=== PATIENT | female | born 1955 | race Caucasian/White ===

== ENCOUNTER 2020-08-27 06:02 | Day surgery (SDC) | payer BC, MEDICARE ==
--- NOTE | 2020-08-26 09:02 | PCM.SN.2 ---
- Free Text/Narrative Note: Date: 08/27/2020 Time Out: 643 Start: 643 Stop: 699 Surgical Procedure: Left Reverse Total Shoulder Arthroplasty Diagnosis: Left shoulder OA Current Procedure: Left interscalene block under US guidance for postoperative pain control requested by Dr. Royal. Patient chart reviewed, risk/benefits discussed with patient, consent obtained. Patient positioned supine, monitors/alarms on, oxygen placed via nasal cannula at 2 LPM. IV sedation administered: Versed 2mg IV, Fentanyl 50mcg IV given in preop prior to block placement. Left shoulder prepped with two chloropreps. Sterile drapes placed with aseptic technique noted. Under US guidance, left subclavian artery visualized along with the left brachial plexus. Plexus followed up to C6 cricoid level, and area localized with 2mls of 1% lidocaine. 22gauge 2 inch stimiplex needle advanced under US with 0.6mV with stimulation of biceps noted. Good stimulation noted with decreased voltage and absent at 0.3mVs. 1ml of Normal Saline injected with loss of stimulation noted to confirm needle not placed intraneurally. Incremental dosing of 5mls with negative aspiration noted prior to each injection of 0.5% ropivacaine with 1:200,000 epinephrine. Total volume=30mls. Please refer to nurses noted for vital signs. Rufina Thompson CRNA
--- NOTE | 2020-08-26 11:40 | PCM.PREANE ---
Preanesthetic Assessment - Procedure Proposed Procedure: Left Reverse Total Shoulder Arthroplasty - Anesthesia/Transfusion/Family Hx Anesthesia History: Prior Anesthesia Without Reaction Family History of Anesthesia Reaction: No Transfusion History: No Prior Transfusion(s) Intubation History: Unknown - Review of Systems General: No Symptoms Pulmonary: No Symptoms (Asthma: uses albuterol 2-3 times daily) Cardiovascular: No Symptoms (HTN, elevated cholesterol) Gastrointestinal: No Symptoms (GERD-depending on diet), Constipation (occasionally) Neurological: No Symptoms, Tingling (left arm) Other: Reports: Easy Bruising, Sinus Problem (seasonal allergies/history of sinus surgery) - Physical Assessment NPO Status Date: 08/26/20 NPO Status Time: 22:30 Vital Signs: HR:88 Sat:98% Temp:98 Resp:16 B/P:124/70 Height: 1.65 m Weight: 77 kg ASA Class: 2 Mental Status: Alert & Oriented x3 Airway Class: Mallampati = 2 Dentition: Reports: Normal Dentition, Caries Thyro-Mental Finger Breadths: 3 Mouth Opening Finger Breadths: 3 ROM/Head Extension: Full Lungs: Clear to Auscultation, Normal Respiratory Effort Cardiovascular: Regular Rate, Regular Rhythm, No Murmurs - Lab Values: All labs reviewed and noted and within acceptable ranges to proceed with scheduled procedure. - Imaging/EKG Impressions: CXR: negative EKG:SR rate= 82, borderline left axis deviation - Allergies Allergies/Adverse Reactions: Allergies Allergy/AdvReac Type Severity Reaction Status Date / Time animal dander Allergy Airway Verified 08/26/20 16:05 Tightness lisinopril Allergy Cough Verified 08/26/20 16:05 Xyodals-Fuf-Pro Reductase Allergy Muscle Verified 08/26/20 16:05 Inhibitor Aches tree and shrub pollen Allergy Airway Verified 08/26/20 16:05 Tightness hay fever Allergy Airway Uncoded 08/26/20 16:05 Tightness - Anesthesia Plan Pre-Op Medication Ordered: Other (Preoperative oral meds: lyrica, oxycodone, tylenol @0625) - Acknowledgements Anesthesia Type Planned: General Anesthesia (Left ISB under US guidance for post operative pain control requested by Dr. Royal.) Pt an Appropriate Candidate for the Planned Anesthesia: Yes Alternatives and Risks of Anesthesia Discussed w Pt/Guardian: Yes Pt/Guardian Understands and Agrees with Anesthesia Plan: Yes PreAnesthesia Questionnaire - HOME MEDS Home Medications: Home Meds Albuterol Sulfate [Proair Hfa] 1 - 2 puff INH Q4H PRN 08/26/20 [History] Ascorbic Acid [Vitamin C] 500 mg PO DAILY 08/26/20 [History] Cholecalciferol (Vitamin D3) [Vitamin D3] 5,000 unit PO DAILY 08/26/20 [History] Ezetimibe [Zetia] 10 mg PO DAILY 08/26/20 [History] Fish Oil/[place]-3 Fatty Acids [Fish Oil 1,000 MG] 1 gm PO Q48H 08/26/20 [History] Fluticasone/Salmeterol [Advair 250-50] 1 puff INH DAILY 08/26/20 [History] Loratadine [Claritin] 10 mg PO DAILY PRN 08/26/20 [History] Multivitamin 1 tab PO DAILY 08/26/20 [History] Ubidecarenone [Coq-10] 100 mg PO Q48H 08/26/20 [History] Zolpidem Tartrate [Ambien] 5 mg PO BEDTIME PRN 08/26/20 [History] amLODIPine Besylate [Norvasc] 10 mg PO DAILY 08/26/20 [History] Aspirin [Aspirin EC] 325 mg PO DAILY #40 tablet.dr 08/27/20 [Rx] Cyclobenzaprine [Flexeril] 5 mg PO BID PRN #20 tab 08/27/20 [Rx] oxyCODONE 5 - 10 mg PO Q4H PRN #60 tab 08/27/20 [Rx] - CURRENT (IN HOUSE) MEDS Current Meds: Current Medications Lactated Ringer's (Ringers, Lactated) 1,000 mls @ 125 mls/hr IV ASDIRECTED FRANSICO Lidocaine/Sodium Bicarbonate (Buffered Lidocaine 1% In Ns 8.4%) 0.25 ml IDERM ONETIME PRN PRN Reason: Prior to IV Start Sodium Chloride (Saline Flush) 10 ml FLUSH ASDIRECTED PRN PRN Reason: Keep Vein Open
[~2020-08-27 06:02] MED LIST: Acetaminophen 325 MG Tab PO SCH; Albuterol 0.083% 2.5 MG/3 ML Neb Soln NEB PRN; Dexamethasone 4 MG/ML 5 ML MDV ONE; EPINEPHrine 1 MG/ML SDV ONE; Ketorolac 30 MG/ML SDV ONE; Lactated Ringers 1,000 ML IV SCH; Lactated Ringers 1,000 ML ONE; Lidocaine 1% 2 ML ONE; Lidocaine 1% 4 ML ONE; Lidocaine 1%/Sod Bicarbonate in NS 8.4% 1 ML Syringe IDERM PRN; Midazolam 1 MG/ML 2 ML SDV ONE; Ondansetron 4 MG/2 ML SDV ONE; Pregabalin 25 MG Cap PO SCH; Rocuronium 50 MG/5 ML Vial ONE; Ropivacaine 0.5% 5 MG/ML 30 ML SDV ONE; Sodium Chloride 0.9% 10 ML Syringe FLUSH PRN; fentaNYL 250 MCG/5 ML SDV ONE; oxyCODONE ER 10 MG TAB.ER PO SCH
[2020-08-27] MEDS ORDERED: Ondansetron 4 MG/2 ML SDV IVPUSH PRN (07:40)
[2020-08-27] MEDS ORDERED: Midazolam 1 MG/ML 2 ML SDV IVPUSH PRN (07:40)
[2020-08-27] MEDS ORDERED: fentaNYL 100 MCG/2 ML SDV IVPUSH PRN (07:40)
[2020-08-27] MEDS ORDERED: ePHEDrine 50 MG/ML SDV IVPUSH PRN (07:40)
[2020-08-27] MEDS ORDERED: diphenhydrAMINE 50 MG/ML SDV IVPUSH PRN (07:40)
[2020-08-27] MEDS ORDERED: HYDROmorphone 0.5 MG/0.5 ML Syringe IVPUSH PRN (07:41)
[2020-08-27] MEDS ORDERED: Albuterol 0.083% 2.5 MG/3 ML Neb Soln NEB PRN (07:41)
[2020-08-27] MEDS ORDERED: Lactated Ringers 1,000 ML ONE (08:02)
[2020-08-27] MEDS: Vancomycin 1 GM SDV ONE ×2 (08:05→08:38)
--- NOTE | 2020-08-27 09:15 | PCM.POSTAN ---
POST ANESTHESIA ASSESSMENT - MENTAL STATUS Mental Status: Alert - VITAL SIGNS Vital Signs: Last Vital Signs Temp 97.8 08/27/20712 Pulse 98 08/27/20712 Resp 16 08/27/20712 BP 129/72 08/27/20712 Pulse Ox 98 08/27/20712 - RESPIRATORY Respiratory Status: Respiratory Rate WNL, Airway Patent, O2 Saturation Stable, Supplemental Oxygen - CARDIOVASCULAR CV Status: Pulse Rate WNL, Blood Pressure Stable - GASTROINTESTINAL GI Status: No Symptoms - POST OP HYDRATION Hydration Status: Adequate & Stable
[2020-08-27] MEDS ORDERED: oxyCODONE 5 MG Tab PO PRN (09:59)
--- NOTE | 2020-08-27 12:42 | PCM48HPAN ---
Post Anesthesia Note - EVALUATION WITHIN 48HRS OF ANESTHETIC Vital Signs in Normal Range: Yes Patient Participated in Evaluation: Yes Respiratory Function Stable: Yes Airway Patent: Yes Cardiovascular Function Stable: Yes Hydration Status Stable: Yes Pain Control Satisfactory: Yes Nausea and Vomiting Control Satisfactory: Yes Mental Status Recovered: Yes Vital Signs: Last Vital Signs Temp 36.4 C 08/27/20 11:00 Pulse 85 08/27/20 12:00 Resp 12 08/27/20 12:00 BP 104/64 08/27/20 12:00 Pulse Ox 92 L 08/27/20 12:00
--- NOTE | 2020-09-03 09:47 | CR ---
PROCEDURE INFORMATION: Exam: FL Fluoroscopy, Up to 1 Hour Physician Time; Radiologist Not Present For Fluoroscopy Exam date and time: 08/27/2020 8:32 AM Age: 65 years old Clinical indication: Condition or disease; Condition/disease: Reverse total shoulder TECHNIQUE: Imaging protocol: Fluoroscopy , up to 1 hour physician or other qualified health customer care representative time. This radiologist did not supervise this procedure. Exam supervised by facility personnel. Report for radiation dosage reporting and documentation only. COMPARISON: No relevant prior studies available. RADIATION DOSE METRICS: Fluoroscopy time (seconds): 5.2 seconds Number of fluoro spot images: 1 Reference air kerma (KIRBY): Not provided. FINDINGS: Procedural imaging: Status post a left reverse total shoulder arthroplasty Notes: Fluoroscopy supervised by facility personnel. See also separate procedure report. IMPRESSION: Fluoroscopy dosage documentation. See also separate procedure notes. Thank you for allowing us to participate in the care of your patient. Dictated and Authenticated by: Sandor Glover MD 08/27/2020 9:46 AM Central Time ([place] & [place]) [place]
--- NOTE | 2020-09-03 09:49 | CR ---
PROCEDURE INFORMATION: Exam: XR Left Shoulder Exam date and time: 08/27/2020 9:02 AM Age: 65 years old Clinical indication: Condition or disease; Other: Post op; Prior surgery; Surgery date: Post-operative (0-2 days) TECHNIQUE: Imaging protocol: XR Left shoulder. Views: 1 view. COMPARISON: CR Shoulder Comp Lt 07/31/2020 11:31 AM FINDINGS: Bones/joints: Status post left reversed total shoulder arthroplasty without evidence of loosening, fracture, or failure. Soft tissues: There is subcutaneous emphysema as well as air within the joint space consistent with the recent surgical procedure. IMPRESSION: Status post left reversed total shoulder arthroplasty without evidence of loosening, fracture, or failure. Thank you for allowing us to participate in the care of your patient. Dictated and Authenticated by: Sandor Glover MD 08/27/2020 10:42 AM Central Time ([place] & [place]) [place]
--- NOTE | 2020-09-04 07:44 | PCM.OPNOTE ---
- General Post-Op/Procedure Note Date of Surgery/Procedure: 08/27/20 Operative Procedure(s): left reverse total shoulder arthroplasty Pre Op Diagnosis: left shoulder rotator cuff tear arthropathy Post-Op Diagnosis: Same Anesthesia Technique: General ET Tube, Regional Block Primary Surgeon: Fabián Royal Anesthesia Provider: Rufina Thompson Fur Sewer: Vera Bui Fur Sewer: Malathi Rivera EBL in mLs: 50 Complications: None Condition: Good Free Text/Narrative:: 13 stem 36+6 4mm poly
--- NOTE | 2020-09-08 06:08 | OR ---
DATE OF OPERATION: 08/27/2020 SURGEON: Fabián Royal MD OPERATION PERFORMED: Left reverse total shoulder arthroplasty. PREOPERATIVE DIAGNOSIS: Left shoulder rotator cuff tear arthropathy. POSTOPERATIVE DIAGNOSIS: Left shoulder rotator cuff tear arthropathy. ANESTHESIA: General endotracheal intubation with regional interscalene block. ANESTHESIA PROVIDER: Rufina Thompson CRNA. ASSISTANTS: Vera Bui PA-C; and Malathi Rivera LPN. ESTIMATED BLOOD LOSS: 50 mL. COMPLICATIONS: None. CONDITION: Stable. IMPLANTS: 1. Lisa size 13, 135 degree humeral stem. 2. Lisa size 36 +6 Glenosphere. 3. Nunda size 4 mm poly. 4. Nunda size 28 mm concentric glenoid baseplate. DESCRIPTION OF PROCEDURE: The patient was identified in the preoperative holding area, where proper site was marked and identified by the surgeon. The patient was taken back to the operating theater where after adequate anesthesia, the patient's left upper extremity was sterilely prepped and draped in the usual sterile fashion. OR time-out was performed. The patient received 2 g IV Ancef. At this time, standard deltopectoral incision was made. This was taken down to the cephalic vein. Cephalic vein was retracted laterally with the deltoid. The clavipectoral fascia was incised. The conjoined tendon was retracted medially. The anterior humeral circumflex vessels were ligated. Biceps tendon was identified and biceps tendon underwent a biceps tenodesis near the pectoralis major. Biceps was then resected all the way back to the level of the glenoid. The peel down of the subscapularis tendon was then done and the humeral head was dislocated. Humeral head cut was then completed and found to be adequate. Attention was turned to the glenoid. Anterior and posterior glenoid retractors were then placed. Circumferential removal of any remaining labrum as well as capsulectomy were then performed. A guide pin was then placed in a center- center position with roughly 10 degrees of inferior tilt. The 28 mm reamer was then utilized until there was a good smile sign with good bony bleeding cancellous bone. The glenoid baseplate was then placed and the central compression screw was placed and found to have adequate purchase with good apposition of the glenoid baseplate on the face of the glenoid. The 36 +6 Glenosphere was then impacted into place and attention was turned to the humerus. Starting with a 10 broach, I was able to broach up to a size 13, which was found to be rotationally and vertically stable. Trial implants were then placed. C-arm fluoroscopy was utilized making sure all the implants were well positioned. There was no instability. The patient had full range of motion with no catching. The trial implants were then removed. The 13 stem with the 4 mm poly was constructed on the back table and then impacted en bloc into the shoulder. Shoulder was then relocated. C-arm fluoroscopy was again utilized showing all components to be well aligned. 1 L of pulse lavage irrigation with Ancef was then irrigated through the shoulder along with Aricept irrigation. Topical tranexamic acid and vancomycin powder were applied. 2-0 Vicryl was used subcutaneously and Prineo was used for closure of the skin. The patient was placed in a sterile soft dressing and a pillow sling and sent to PACU in stable condition. ASHLEE /[id number]
== END 2020-08-27 14:55 | disposition home or self-care (01) ==
LOC: JD.SDS 06:02 → EDSTATUS 07:30 → JD.SDS 14:55
PROVIDERS: ATTEND Orthopaedic Surgery
DX: M75.102 Unspecified rotator cuff tear or rupture of left shoulder, not specified as traumatic (principal); I10 Essential (primary) hypertension; E78.00 Pure hypercholesterolemia, unspecified; J45.20 Mild intermittent asthma, uncomplicated; Z78.0 Asymptomatic menopausal state; Z79.899 Other long term (current) drug therapy; Z88.8 Allergy status to other drugs, medicaments and biological substances
CPT/HCPCS: 23472; 73020; 76000; 97110; 97161; A9270; C1713; C1776; J0171; J1100; J1885; J2001; J2250; J2405; J2710; J2795; J3010; J3370; J7120; 01638; 64415; J2370

== ENCOUNTER 2021-05-27 17:07 | Emergency (ER) | payer OTHER, MEDICARE ==
[2021-05-27] MEDS ORDERED: Sodium Chloride 0.9% 10 ML Syringe FLUSH PRN (17:29)
[2021-05-27] MEDS ORDERED: Ondansetron 4 MG/2 ML SDV IVPUSH ONE (17:31)
[2021-05-27] MEDS ORDERED: Sodium Chloride 0.9% 1,000 ML IV STA (17:31)
[2021-05-27] MEDS ORDERED: HYDROmorphone 0.5 MG/0.5 ML Syringe IVPUSH ONE (17:31)
--- NOTE | 2021-05-27 18:22 | CT ---
CT abdomen and pelvis Technique: Multiple axial sections were obtained from above the dome of the diaphragm inferiorly through the pubic symphysis. Intravenous and oral contrast were not utilized. Study has been performed as a ureteral stone protocol. Comparison: No prior abdomen and pelvis imaging is available. Findings: Multiple parapelvic cysts are seen within both kidneys, worse on the left side. There are two nonobstructing calculi being seen within the left kidney with largest calculus measuring 7 mm. Two small calculi are noted within the right kidney with largest measuring 4 mm. No ureteral dilatation or ureteral stone is seen. No bladder calculi are seen. Visualized lung bases show nothing acute. Numerous cysts are seen within the right and left lobes of the liver. Largest cyst is located within the right lobe of the liver measuring 7.1 cm. Gallbladder contains no calcified gallstones. Adrenal glands show no nodule. Pancreas appears within normal limits. Abdominal aorta shows atherosclerotic calcification which continues into the iliac arteries. No aneurysm is seen. No retroperitoneal adenopathy or mesenteric abnormalities are seen. No pelvic mass or adenopathy is seen. Appendix is not visualized with certainty. There is evidence of fecal material within distal small bowel loops in the right lower quadrant. No bowel dilatation is seen in this area. Bone window settings were reviewed which show degenerative change within the lumbar spine. There is fusion at L5-S1 being seen with spondylolisthesis measuring 1.3 cm. Impression: 1. Numerous liver cysts as well as multiple parapelvic cysts within both kidneys. Parapelvic cysts are more prominent within the left kidney. Two nonobstructing calculi are seen within each kidney. No ureteral dilatation or ureteral calculi are is seen. 2. Other findings as noted above which are chronic. Nothing acute is appreciated. Diagnostic code #2
--- NOTE | 2021-05-27 19:09 | EDM.PDOC ---
ED HPI GENERAL MEDICAL PROBLEM - General Chief Complaint: Abdominal Pain Stated Complaint: NAUSEA/ABDOMINAL PAIN Time Seen by Provider: 05/27/21 17:12 Source of Information: Reports: Patient, RN Notes Reviewed History Limitations: Reports: No Limitations - History of Present Illness INITIAL COMMENTS - FREE TEXT/NARRATIVE: Patient is a 65-year-old female presenting to the emergency department with complaints of right-sided flank and abdominal pain that started around 10 AM this morning. She reports the pain is constant with occasional "cramping ". She is felt nauseous but has had no vomiting. Denies diarrhea. States that she thought she could be constipated but did have 2 small bowel movements this morning. She has had kidney stones in the past but states that this feels different than before. Denies any dysuria or obvious hematuria. Right Lower Abdomen Pain Score (Numeric/FACES): 2 - Related Data Allergies Allergy/AdvReac Type Severity Reaction Status Date / Time animal dander Allergy Severe Airway Verified 05/27/21 17:18 Tightness tree and shrub pollen Allergy Severe Airway Verified 05/27/21 17:18 Tightness lisinopril AdvReac Severe Cough Verified 05/27/21 17:18 [id number] Reductase AdvReac Severe Muscle Verified 05/27/21 17:18 Inhibitor Aches hay fever Allergy Severe Airway Uncoded 05/27/21 17:18 Tightness Home Meds: Home Meds Albuterol Sulfate [Proair Hfa] 1 - 2 puff INH Q4H PRN 08/26/20 [History] Ascorbic Acid [Vitamin C] 250 mg PO DAILY 08/26/20 [History] Ezetimibe [Zetia] 10 mg PO DAILY 08/26/20 [History] Fish Oil/Dixon-3 Fatty Acids [Fish Oil 1,000 MG] 500 mg PO Q48H 08/26/20 [History] Loratadine [Claritin] 10 mg PO DAILY PRN 08/26/20 [History] Multivitamin 1 tab PO DAILY 08/26/20 [History] Ubidecarenone [Coq-10] 100 mg PO DAILY 08/26/20 [History] amLODIPine Besylate [Norvasc] 10 mg PO DAILY 08/26/20 [History] Calcium Carbonate [Calcium] 250 mg PO DAILY 05/27/21 [History] Cefdinir [Omnicef] 300 mg PO BID 7 Days #14 cap 05/27/21 [Rx] L.acidoph,Paracasei, B.lactis [Probiotic] 1 each PO DAILY 05/27/21 [History] Zolpidem Tartrate [Ambien] 5 mg PO BEDTIME PRN 05/27/21 [History] Past Medical History HEENT History: Reports: Hard of Hearing, Impaired Vision, Other (See Below) Other HEENT History: TMJ with surgical intervention, wears glasses, has hearing aids Cardiovascular History: Reports: High Cholesterol, Hypertension Respiratory History: Reports: Asthma Gastrointestinal History: Reports: Colon Polyp, GERD, Other (See Below) Other Gastrointestinal History: esophagitis Genitourinary History: Reports: UTI, Recurrent Other Genitourinary History: UTI 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 Musculoskeletal History: Reports: Arthritis Neurological History: Reports: None Psychiatric History: Reports: None Endocrine/Metabolic History: Reports: Obesity/BMI 30+ Hematologic History: Reports: None Immunologic History: Reports: None Oncologic (Cancer) History: Reports: None Dermatologic History: Reports: None - Past Surgical History HEENT Surgical History: Reports: Naso-Sinus Surgery, Other (See Below) Other HEENT Surgeries/Procedures: TMJ Surgery GI Surgical History: Reports: Colonoscopy, EGD Female Surgical History: Reports: Section, Hysterectomy, Oophorectomy Musculoskeletal Surgical History: Reports: Shoulder Surgery Social & Family History - Tobacco Use Tobacco Use Status *Q: Never Tobacco User - Caffeine Use Caffeine Use: Reports: Coffee - Recreational Drug Use Recreational Drug Use: No ED ROS GENERAL - Review of Systems Review Of Systems: See Below Constitutional: Reports: No Symptoms. Denies: Fever, Chills HEENT: Reports: No Symptoms Respiratory: Reports: No Symptoms Cardiovascular: Reports: No Symptoms Endocrine: Reports: No Symptoms GI/Abdominal: Reports: Abdominal Pain, Nausea. Denies: Diarrhea, Vomiting : Reports: No Symptoms. Denies: Dysuria, Hematuria Musculoskeletal: Reports: No Symptoms Skin: Reports: No Symptoms Neurological: Reports: No Symptoms Psychiatric: Reports: No Symptoms Hematologic/Lymphatic: Reports: No Symptoms Immunologic: Reports: No Symptoms ED EXAM, GI/ABD - Physical Exam Exam: See Below Exam Limited By: No Limitations General Appearance: Alert, WD/WN, No Apparent Distress Respiratory/Chest: No Respiratory Distress, Lungs Clear, Normal Breath Sounds, No Accessory Muscle Use, Chest Non-Tender Cardiovascular: Normal Peripheral Pulses, Regular Rate, Rhythm, No Edema, No Gallop, No JVD, No Murmur, No Rub GI/Abdominal Exam: Normal Bowel Sounds, Soft, No Organomegaly, No Distention, No Abnormal Bruit, No Mass, Pelvis Stable, Tender (RLQ and right lateral abdomen) Back Exam: Normal Inspection, Full Range of Motion, CVA Tenderness (R). No: CVA Tenderness (L) Neurological: Alert, Oriented, CN II-XII Intact, Normal Cognition, Normal Gait, Normal Reflexes, No Motor/Sensory Deficits Psychiatric: Normal Affect, Normal Mood Skin Exam: Warm, Dry, Intact, Normal Color, No Rash Course - Vital Signs Last Recorded V/S: Last Vital Signs Temp 96.9 F 05/27/21 17:14 Pulse 86 05/27/21 17:14 Resp 16 05/27/21 17:14 BP 161/88 H 05/27/21 17:14 Pulse Ox 96 05/27/21 17:14 - Orders/Labs/Meds Orders: Active Orders 24 hr Category Date Time Status Peripheral IV Care [RC] . DIRECTED Care 05/27/21 17:29 Active CULTURE URINE [MREF] Stat Lab 05/27/21 17:40 Ordered Sodium Chloride 0.9% [Normal Saline] 1,000 ml Med 05/27/21 17:31 Active IV NOW Sodium Chloride 0.9% [Saline Flush] Med 05/27/21 17:29 Active 10 ml FLUSH ASDIRECTED PRN Peripheral IV Insertion Adult [OM.PC] Stat Oth 05/27/21 17:29 Ordered Medication Orders Sodium Chloride (Normal Saline) 1,000 mls @ 150 mls/hr IV NOW STA Stop: 05/28/21 00:10 Last Admin: 05/27/21 18:04 Dose: 150 mls/hr Documented by: MARIBEL Sodium Chloride (Sodium Chloride 0.9% 10 Ml Syringe) 10 ml FLUSH ASDIRECTED PRN PRN Reason: Keep Vein Open Last Admin: 05/27/21 17:58 Dose: 10 ml Documented by: MARIBEL Labs: Laboratory Tests 05/27/21 05/27/21 05/27/21 Range/Units 17:40 17:58 17:58 WBC 9.96 (3.98-10.04) K/mm3 RBC 5.10 (3.98-5.22) M/mm3 Hgb 14.9 (11.2-15.7) gm/dl Hct 44.6 (34.1-44.9) % MCV 87.5 (79.4-94.8) fl MCH 29.2 (25.6-32.2) pg MCHC 33.4 (32.2-35.5) g/dl RDW Std Deviation 42.7 (36.4-46.3) fL Plt Count 368 (182-369) K/mm3 MPV 9.5 (9.4-12.3) fl Neut % (Auto) 69.7 (34.0-71.1) % Lymph % (Auto) 21.5 (19.3-51.7) % Sutton % (Auto) 7.2 (4.7-12.5) % Eos % (Auto) 1.3 (0.7-5.8) Baso % (Auto) 0.2 (0.1-1.2) % Neut # (Auto) 6.94 H (1.56-6.13) K/mm3 Lymph # (Auto) 2.14 (1.18-3.74) K/mm3 Sutton # (Auto) 0.72 H (0.24-0.36) K/mm3 Eos # (Auto) 0.13 (0.04-0.36) K/mm3 Baso # (Auto) 0.02 (0.01-0.08) K/mm3 Sodium 141 (136-145) mEq/L Potassium 4.1 (3.5-5.1) mEq/L Chloride 106 (98-107) mEq/L Carbon Dioxide 25 (21-32) mEq/L Anion Gap 14.1 (5-15) BUN 19 H (7-18) mg/dL Creatinine 1.2 H (0.55-1.02) mg/dL Est Cr Clr Drug Dosing 39.28 mL/min Estimated GFR (MDRD) 45 (>60) mL/min BUN/Creatinine Ratio 15.8 (14-18) Glucose 112 H (70-99) mg/dL Calcium 9.2 (8.5-10.1) mg/dL Total Bilirubin 0.3 (0.2-1.0) mg/dL AST 14 L (15-37) U/L ALT 22 (14-59) U/L Alkaline Phosphatase 68 (46-116) U/L C-Reactive Protein <0.2 (<1.0) mg/dL Total Protein 7.3 (6.4-8.2) g/dl Albumin 3.9 (3.4-5.0) g/dl Globulin 3.4 gm/dL Albumin/Globulin Ratio 1.2 (1-2) Lipase 84 (73-393) U/L Urine Color Light yellow (Yellow) Urine Appearance Clear (Clear) Urine pH 6.0 (5.0-8.0) Ur Specific [place] 1.020 (1.005-1.030) Urine Protein Negative (Negative) Urine Glucose (UA) Negative (Negative) Urine Ketones Negative (Negative) Urine Occult Blood Negative (Negative) Urine Nitrite Negative (Negative) Urine Bilirubin Negative (Negative) Urine Urobilinogen 0.2 (0.2-1.0) Ur Leukocyte Esterase 2+ H (Negative) Urine RBC 0-5 (0-5) /hpf Urine WBC 5-10 H (0-5) /hpf Ur Epithelial Cells 0-5 (0-5) /hpf Urine Bacteria Rare (FEW) /hpf Urine Mucus Rare (FEW) /hpf Meds: Medications Generic Name Dose Route Start Last Admin Trade Name Freq PRN Reason Stop Dose Admin Sodium Chloride 1,000 mls @ 150 mls/hr 05/27/21 17:31 05/27/21 18:04 Normal Saline IV 05/28/21 00:10 150 mls/hr NOW STA Administration Sodium Chloride 10 ml 05/27/21 17:29 05/27/21 17:58 Sodium Chloride 0.9% 10 Ml Syringe FLUSH 10 ml ASDIRECTED PRN Administration Keep Vein Open Discontinued Medications Generic Name Dose Route Start Last Admin Trade Name Freq PRN Reason Stop Dose Admin Hydromorphone HCl 0.5 mg 05/27/21 17:31 05/27/21 18:02 Hydromorphone 0.5 Mg/0.5 Ml Syringe IVPUSH 05/27/21 17:32 0.5 mg ONETIME ONE Administration Ondansetron HCl 4 mg 05/27/21 17:31 05/27/21 18:00 Ondansetron 4 Mg/2 Ml Sdv IVPUSH 05/27/21 17:32 4 mg ONETIME ONE Administration - Re-Assessments/Exams Free Text/Narrative Re-Assessment/Exam: Patient is a 65-year-old female presenting to the emergency department with complaints of right lower quadrant and right lateral abdominal pain as well as right flank pain. On exam, patient does have right lower quadrant and right lateral abdominal tenderness as well as right-sided flank pain. Exam is suspicious for possible kidney stone. I have ordered blood work, urinalysis, and a CT scan of the abdomen pelvis without contrast. We will give her IV fluids, Dilaudid, and Zofran. 05/27/21 19:10 Hematology is grossly unremarkable. Urinalysis shows 2+ leukocyte esterase and 10-20 WBCs consistent with urinary tract infection. CT scan shows numerous cysts as well as nonobstructing kidney stones but no ureteral dilatation or ureteral calculi. Review of the CT does show increased stool in the area of her discomfort. Patient will be treated for urinary tract infection with Omnicef. This prescription will be sent to her pharmacy. She will be sent home with a bottle of magnesium citrate. Discussed return precautions. Discharge instructions as documented. Departure - Departure Time of Disposition: 19:10 Disposition: Home, Self-Care 01 Condition: Good Clinical Impression: Urinary tract infection Qualifiers: Urinary tract infection type: site unspecified Hematuria presence: without hematuria Qualified Code(s): N39.0 - Urinary tract infection, site not specified - Discharge Information *PRESCRIPTION DRUG MONITORING PROGRAM REVIEWED*: No *COPY OF PRESCRIPTION DRUG MONITORING REPORT IN PATIENT ABEL: No Prescriptions: Cefdinir [Omnicef] 300 mg PO BID 7 Days #14 cap Instructions: Urinary Tract Infection, Adult Referrals: Lenore Ibanez MD [Primary Care Provider] - Additional Instructions: You were seen in the emergency department today for right-sided abdominal and back pain. Work-up included blood work, urinalysis, and a CT scan of your abdomen pelvis. Blood work was found to be normal. Urinalysis did show that you have a urinary tract infection. CT scan showed increased stool in the right side of your colon as well as numerous cysts in your liver and kidneys. Was otherwise found to be normal. You have been started on Omnicef for treatment of urinary tract infection. Take this medication as prescribed. You been sent home with a bottle of magnesium citrate which is a laxative. Recommend that you drink that upon your arrival home. This should produce a number of bowel movements, some of which would be loose. If symptoms fail to improve or you develop any worsening symptoms, please not hesitate to return to the emergency department for reevaluation. Sepsis Event Note (ED) - Evaluation Sepsis Screening Result: No Definite Risk - Focused Exam Vital Signs: Vital Signs Temp Pulse Resp BP Pulse Ox 05/27/21 17:14 96.9 F 86 16 161/88 H 96 - My Orders Last 24 Hours: My Active Orders 05/27/21 17:29 Peripheral IV Care [RC] . DIRECTED Sodium Chloride 0.9% [Saline Flush] 10 ml FLUSH ASDIRECTED PRN Peripheral IV Insertion Adult [OM.PC] Stat 05/27/21 17:31 Sodium Chloride 0.9% [Normal Saline] 1,000 ml IV NOW 05/27/21 17:40 CULTURE URINE [MREF] Stat - Assessment/Plan Last 24 Hours: My Active Orders 05/27/21 17:29 Peripheral IV Care [RC] . DIRECTED Sodium Chloride 0.9% [Saline Flush] 10 ml FLUSH ASDIRECTED PRN Peripheral IV Insertion Adult [OM.PC] Stat 05/27/21 17:31 Sodium Chloride 0.9% [Normal Saline] 1,000 ml IV NOW 05/27/21 17:40 CULTURE URINE [MREF] Stat
[2021-05-27] MEDS ORDERED: Magnesium Citrate Solution 296 ML Bottle PO ONE (19:12)
== END 2021-05-27 19:30 | disposition home or self-care (01) ==
LOC: JD.ED 17:07
DX: N39.0 Urinary tract infection, site not specified (principal); I10 Essential (primary) hypertension; J45.909 Unspecified asthma, uncomplicated; E66.9 Obesity, unspecified; Z68.30 Body mass index [BMI] 30.0-30.9, adult; Z91.048 Other nonmedicinal substance allergy status; Z88.8 Allergy status to other drugs, medicaments and biological substances; Z79.899 Other long term (current) drug therapy
CPT/HCPCS: 36415; 74176; 80053; 81001; 83690; 85025; 86140; 87086; 87088; 87186; 96374; 96375; 99284; A9270; J1170; J2405; J7030

== ENCOUNTER 2021-11-22 13:00 | Day surgery (SDC) | payer BC, MEDICARE ==
[~2021-11-22 13:00] MED LIST changes: -Dexamethasone 4 MG/ML 5 ML MDV ONE; -Ketorolac 30 MG/ML SDV ONE; -Lidocaine 1% 2 ML ONE; +Propofol 200 MG/20 ML SDV ONE; -Sodium Chloride 0.9% 10 ML Syringe FLUSH PRN; +Sodium Chloride 0.9% 10 ML Syringe FLUSH SCH; +Vancomycin 1 GM SDV ONE; +ceFAZolin 1 GM Vial ONE; +fentaNYL 100 MCG/2 ML SDV ONE; -fentaNYL 250 MCG/5 ML SDV ONE
[2021-11-22] MEDS ORDERED: fentaNYL 100 MCG/2 ML SDV ONE (13:31)
[2021-11-22] MEDS ORDERED: Bupivacaine 0.25% 10 ML SDV ONE (13:39)
[2021-11-22] MEDS ORDERED: Ondansetron 4 MG/2 ML SDV ONE (13:54)
[2021-11-22] MEDS ORDERED: Dexamethasone 4 MG/ML 5 ML MDV ONE (13:54)
[2021-11-22] MEDS ORDERED: HYDROmorphone 0.5 MG/0.5 ML Syringe IVPUSH PRN (14:21)
[2021-11-22] MEDS ORDERED: Ondansetron 4 MG/2 ML SDV IVPUSH PRN (14:21)
[2021-11-22] MEDS ORDERED: fentaNYL 100 MCG/2 ML SDV IVPUSH PRN (14:21)
[2021-11-22] MEDS ORDERED: oxyCODONE 5 MG Tab PO PRN (15:33)
== END 2021-11-22 18:10 | disposition home or self-care (01) ==
LOC: JD.SDS 13:00
PROVIDERS: ATTEND Orthopaedic Surgery
DX: M19.011 Primary osteoarthritis, right shoulder (principal); M75.101 Unspecified rotator cuff tear or rupture of right shoulder, not specified as traumatic; I10 Essential (primary) hypertension; J45.20 Mild intermittent asthma, uncomplicated; G47.33 Obstructive sleep apnea (adult) (pediatric); E78.00 Pure hypercholesterolemia, unspecified; M06.9 Rheumatoid arthritis, unspecified; D75.839 Thrombocytosis, unspecified; Z79.899 Other long term (current) drug therapy; Z88.8 Allergy status to other drugs, medicaments and biological substances; Z91.048 Other nonmedicinal substance allergy status; K21.9 Gastro-esophageal reflux disease without esophagitis; Z98.890 Other specified postprocedural states
CPT/HCPCS: 23472; 73020; 76000; 97161; A9270; C1713; C1769; C1776; J0171; J0690; J1100; J2250; J2370; J2405; J2704; J2710; J2795; J3010; J3370; J3490; J7120; 01638; 64415; 76942

== ENCOUNTER 2023-06-01 21:21 | Emergency (ER) | payer MEDICARE, OTHER ==
[2023-06-01] MEDS ORDERED: Sodium Chloride 0.9% 1,000 ML IV SCH (23:45)
[2023-06-01] MEDS ORDERED: Ondansetron 4 MG/2 ML SDV IVPUSH ONE (23:52)
[2023-06-01] MEDS ORDERED: HYDROmorphone 1 MG/ML Syringe IVPUSH ONE (23:52)
[2023-06-02] MEDS ORDERED: HYDROmorphone 1 MG/ML Syringe IVPUSH ONE (02:09)
== END 2023-06-02 06:14 ==
LOC: JD.ED 21:21
DX: S72.012A Unspecified intracapsular fracture of left femur, initial encounter for closed fracture (principal); S00.81XA Abrasion of other part of head, initial encounter; I10 Essential (primary) hypertension; J45.909 Unspecified asthma, uncomplicated; Z87.891 Personal history of nicotine dependence; Z79.899 Other long term (current) drug therapy; Z91.048 Other nonmedicinal substance allergy status; Z88.8 Allergy status to other drugs, medicaments and biological substances; Z79.82 Long term (current) use of aspirin; W01.0XXA Fall on same level from slipping, tripping and stumbling without subsequent striking against object, initial encounter; Y92.009 Unspecified place in unspecified non-institutional (private) residence as the place of occurrence of the external cause
CPT/HCPCS: 72192; 73502; 96374; 96375; 96376; 99285; J1170; J2405; J7030; 70450; 72125